=== PATIENT | male | born 1960 | race Caucasian/White ===

== ENCOUNTER 2018-03-19 06:57 | Outpatient (CLI) | payer OTHER ==
--- NOTE | 2018-03-19 08:10 | ULT ---
BILATERAL RENAL ULTRASOUND: Date: 03/19/18 HISTORY: Bilateral renal cysts seen on CT in [place] 2 weeks ago. Kidney stones. FINDINGS: The right kidney measures 12.2 cm in length and the left kidney measures 12.7 cm in length. No hydron ephrosis seen on either side. There are bilateral renal cysts. The largest of these is in the inferio r pole of the right kidney measuring 12.2 cm. Small echogenic foci in the left kidney are likely nono bstructing calculi. The urinary bladder is unremarkable. The prostate measures 3.5 x 3.9 x 3.1 cm. IMPRESSION: 1. Bilateral renal cysts. 2. Probable nonobstructing left renal calculi. 3. Prostatic enlargement. POS: NADIA
== END 2018-03-19 06:58 | disposition home or self-care (01) ==
LOC: BICULT 06:57
PROVIDERS: ATTEND Family Medicine
DX: N28.1 Cyst of kidney, acquired (principal); N40.0 Benign prostatic hyperplasia without lower urinary tract symptoms
CPT/HCPCS: 76770